=== PATIENT | female | born 1960 | race Native Hawaiian/Other Pacific Islander ===

== ENCOUNTER 2019-03-07 09:56 | Outpatient (CLI) | payer OTHER | END 2019-03-07 23:43 | disposition home or self-care (01) | LOC: RAD 09:56 | DX: R06.02 Shortness of breath (principal) ==

== ENCOUNTER 2019-04-05 08:22 | Outpatient (CLI) | payer OTHER | END 2019-04-05 19:54 | disposition home or self-care (01) | LOC: MAMMO 08:22 | DX: Z12.31 Encounter for screening mammogram for malignant neoplasm of breast (principal) ==

== ENCOUNTER 2020-05-23 14:42 | Outpatient (CLI) | payer OTHER | END 2020-05-23 22:18 | disposition home or self-care (01) | LOC: RESP 14:42 | DX: J45.40 Moderate persistent asthma, uncomplicated (principal) ==

== ENCOUNTER 2022-01-20 14:09 | Outpatient (CLI) | payer OTHER ==
[2022-01-20 15:16] LABS: PLATELET COUNT 199 K/uL (152-353)
== END 2022-01-20 19:00 | disposition home or self-care (01) ==
LOC: LAB 14:09
PROVIDERS: ATTEND Internal Medicine
DX: I10 Essential (primary) hypertension (principal); J45.909 Unspecified asthma, uncomplicated
CPT/HCPCS: 80053; 80061; 83036; 84439; 84443; 85027

== ENCOUNTER 2022-01-29 07:57 | Outpatient (CLI) | payer OTHER | END 2022-01-29 19:51 | disposition home or self-care (01) | LOC: MAMMO 07:57 | PROVIDERS: ATTEND Internal Medicine | DX: Z12.31 Encounter for screening mammogram for malignant neoplasm of breast (principal); Z13.820 Encounter for screening for osteoporosis; N95.8 Other specified menopausal and perimenopausal disorders ==

== ENCOUNTER 2022-08-28 07:46 | Outpatient (CLI) | payer OTHER ==
[2022-08-28 08:24] LABS: PLATELET COUNT 269 K/uL (152-353)
[2022-08-28 08:34] LABS: POTASSIUM 3.9 mmol/L (3.6-5.2)
== END 2022-08-28 19:11 | disposition home or self-care (01) ==
LOC: LABW 07:46
PROVIDERS: ATTEND Internal Medicine
DX: I10 Essential (primary) hypertension (principal); J45.909 Unspecified asthma, uncomplicated
CPT/HCPCS: 36415; 80053; 80061; 81002; 84439; 84443; 85027

== ENCOUNTER 2023-04-01 08:10 | Outpatient (CLI) | payer OTHER ==
[2023-04-01 08:31] LABS: PLATELET COUNT 273 K/uL (152-353)
[2023-04-01 08:53] LABS: POTASSIUM 3.7 mmol/L (3.6-5.2)
== END 2023-04-01 19:54 | disposition home or self-care (01) ==
LOC: LABW 08:10 → MAMMO 08:30 → LABW 19:54
PROVIDERS: ATTEND Internal Medicine
DX: Z12.31 Encounter for screening mammogram for malignant neoplasm of breast (principal); I10 Essential (primary) hypertension
CPT/HCPCS: 36415; 80053; 80061; 81002; 84439; 84443; 85027